=== PATIENT | male | born 1985 | race Caucasian/White ===

== ENCOUNTER 2018-07-22 09:28 | Inpatient (IN) | payer BC ==
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
[2018-07-22 11:05] LABS: Amphetamine Screen,Urine Not Detected (NotDetected); Barbiturate Screen,Urine Not Detected (NotDetected); Benzodiazepines Screen,Urine Not Detected (NotDetected); Cocaine Screen,Urine Not Detected (NotDetected); Methadone Screen, Urine Not Detected (NotDetected); Opiate Screen,Urine Not Detected (NotDetected); Oxycodone Screen, Urine Not Detected (NotDetected); Phencyclidine Screen,Urine Not Detected (NotDetected); Tricyclic Antidepressant,Urine Not Detected (NotDetected); Urn Cannabinoid Scrn Detected (NotDetected)
[2018-07-22] MEDS ORDERED: ACETAMINOPHEN TAB 325 MG TAB PO PRN (15:32)
[2018-07-22] MEDS ORDERED: MAG HYDROX/AL HYDROX/SIMETH 30 ML CUP PO PRN (15:32)
[2018-07-22] MEDS ORDERED: MAGNESIUM HYDROXIDE 2,400 MG/10 ML CUP PO PRN (15:32)
[2018-07-22] MEDS ORDERED: ZIPRASIDONE 20 MG VIAL IM PRN (15:32)
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
[2018-07-23] MEDS: LORazepam 1 MG TAB PO PRN (01:23)
[2018-07-23 08:58] VITALS: BMI 21.2
[2018-07-23 09:08] LABS: Basophils % (A) 0 %; Eosinophils # (A) 0.2 k/uL (0-0.7); Eosinophils % (A) 3 %; HCT 46.3 % (39.0-53.0); HGB 15.5 gm/dL (13.0-17.5); Lymphocytes # (A) 1.6 k/uL (1.0-4.8); Lymphocytes % (A) 22 %; MCH 30.3 pg (25.0-35.0); MCHC 33.4 g/dL (31.0-37.0); MCV 90.7 fL (80.0-100.0); Mean Platelet Volume 7.9; Monocytes # (A) 0.6 k/uL (0-1.0); Monocytes % (A) 8 %; Neutrophils # (A) 4.7 k/uL (1.3-7.7); Neutrophils % (A) 65 %; Platelet Count 219 k/uL (150-450); RDW 12.7 % (11.5-15.5); WBC 7.2 k/uL (3.8-10.6)
[2018-07-23 09:18] LABS: ALT 43 U/L (21-72); AST 30 U/L (17-59); Albumin 4.5 g/dL (3.5-5.0); Alkaline Phosphatase 56 U/L (38-126); Anion Gap 10 mmol/L; Blood Urea Nitrogen 14 mg/dL (9-20); Calcium 10.3 mg/dL (8.4-10.2); Carbon Dioxide 28 mmol/L (22-30); Chloride 105 mmol/L (98-107); Glucose 92 mg/dL (74-99); Potassium 5.1 mmol/L (3.5-5.1); Sodium 143 mmol/L (137-145); Total Protein 7.5 g/dL (6.3-8.2)
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
[2018-07-23] MEDS: VENLAFAXINE HCL ER 37.5 MG CAP PO SCH (21:11)
[2018-07-24] MEDS: LORazepam 1 MG TAB PO PRN ×2 (00:21→21:31)
--- NOTE | 2018-07-24 19:16 | P.PN ---
Progress Note - Text Progress Note Date: 07/24/18 Found him very depressed and down. Reports not sleeping as good last night due to racing thoughts. MSE : He is alert, awake and oriented in all spheres. Irritable and anxious. Fair eye contact. Speech loud and pressured. Mood irritable and depressed with congruent affect. Denies any suicidal or homicidal ideation. Paranoid delusional. Has no auditory/Visual hallucinations. Insight and judgment impaired. Major Depression Will continue to adjust medications accordingly
[2018-07-24] MEDS: VENLAFAXINE HCL ER 37.5 MG CAP PO SCH (21:31)
--- NOTE | 2018-07-25 11:57 | P.PN ---
Progress Note - Text Progress Note Date: 07/25/18 Found him still depressed and down. Reports now sleeping better as medications are helping him. MSE : He is alert, awake and oriented in all spheres. Irritable and anxious. Fair eye contact. Speech loud and pressured. Mood irritable and depressed with congruent affect. Denies any suicidal or homicidal ideation. Paranoid delusional. Has no auditory/Visual hallucinations. Insight and judgment impaired. Major Depression Will continue to adjust medications accordingly
[2018-07-25] MEDS: VENLAFAXINE HCL ER 37.5 MG CAP PO SCH (20:08)
[2018-07-25] MEDS: LORazepam 1 MG TAB PO PRN (23:32)
--- NOTE | 2018-07-26 16:59 | P.PN ---
Progress Note - Text Progress Note Date: 07/26/18 Found him some what better mood garcia. He reports having trouble falling asleep. MSE : He is alert, awake and oriented in all spheres. Irritable and anxious. Fair eye contact. Speech loud and pressured. Mood irritable and depressed with congruent affect. Denies any suicidal or homicidal ideation. Paranoid delusional. Has no auditory/Visual hallucinations. Insight and judgment impaired. Major Depression Will add trazodone 50 mg po qhs and continue to adjust medications accordingly
[2018-07-26] MEDS: VENLAFAXINE HCL ER 37.5 MG CAP PO SCH (20:16)
[2018-07-26] MEDS ORDERED: traZODone HCL 50 MG TAB PO SCH (21:00)
--- NOTE | 2018-07-27 11:54 | P.PN ---
Progress Note - Text Progress Note Date: 07/27/18 Found him some what better mood garcia. He reports having restless legs on trazodone. MSE : He is alert, awake and oriented in all spheres. Irritable and anxious. Fair eye contact. Speech loud and pressured. Mood irritable and depressed with congruent affect. Denies any suicidal or homicidal ideation. Paranoid delusional. Has no auditory/Visual hallucinations. Insight and judgment impaired. Major Depression Will discontinue trazodone 50 mg po qhs and start elavil 50 mg po qhs and increase Effexor XR to 75 mg po qdaily
[2018-07-27] MEDS: AMITRIPTYLINE HCL 50 MG TAB PO SCH (20:28)
[2018-07-27] MEDS ORDERED: VENLAFAXINE HCL ER 75 MG CAP PO SCH (21:00)
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
[2018-07-28] MEDS: AMITRIPTYLINE HCL 50 MG TAB PO SCH (20:11)
[2018-07-28] MEDS ORDERED: VENLAFAXINE HCL ER 150 MG CAP PO SCH (21:00)
[2018-07-29 06:32] VITALS: BP 107/61; PULSE 75; RESP 16; TEMP 97.8
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
== END 2018-07-29 12:28 | disposition home or self-care (01) | DRG 885 ==
LOC: EC 09:28 → 3MHU 14:53
PROVIDERS: ADMIT Psychiatry & Neurology Psychiatry; ATTEND Psychiatry & Neurology Psychiatry
DX: F32.3 Major depressive disorder, single episode, severe with psychotic features (principal); F17.200 Nicotine dependence, unspecified, uncomplicated; Z71.6 Tobacco abuse counseling; G25.81 Restless legs syndrome; Z79.899 Other long term (current) drug therapy; Z91.19 Patient's noncompliance with other medical treatment and regimen
CPT/HCPCS: 80053; 80306; 82075; 84443; 85025; 99285